=== PATIENT | female | born 1960 | race Caucasian/White ===

== ENCOUNTER 2016-11-03 09:11 | Day surgery (SDC) | payer BC ==
--- NOTE | ~2016-11-03 | EGD ---
EGD REPORT [facility] [address] [address] NAME: ANNEMARIE WARNER : [birth year] STATUS : REG [facility]#: [id number] AGE: 56 ADM/REG DATE : 11/03/16 MR#: [id number] REPORT SERV DATE: 11/03/16 DICTATED BY: ERNIE MCGINNIS DATE: 11/03/16 REPORT STATUS : Draft [facility]ANSCRIBED BY: [facility] DATE: 11/03/16 Endoscopy Center Patient Name: Annemarie Warner Date of : 1960 Attending MD: ERNIE MCGINNIS MD Procedure Date No Time: 11/03/2016 Procedure: Colonoscopy Indications: Follow-up of diverticulitis Referring MD: KRISTINA REYNOLDS MD Medicines: Monitored Anesthesia Care Complications: No immediate complications. Procedure: Pre-Anesthesia Assessment: - ASA Grade Assessment: III - A patient with severe systemic disease. After I obtained informed consent, the scope was passed under direct vision. Throughout the procedure, the patient's blood pressure, pulse, and oxygen saturations were monitored continuously. The CF [id number] was introduced through the anus and advanced to the terminal ileum, with identification of the appendiceal orifice and IC valve. The colonoscopy was performed without difficulty. The patient tolerated the procedure well. The quality of the bowel preparation was good. Findings: The digital rectal exam was normal. Pertinent negatives include no palpable rectal lesions. Multiple diverticula were found in the sigmoid colon. Non-bleeding hemorrhoids were found during retroflexion and were mild. The terminal ileum appeared normal. Impression: - Diverticulosis in the sigmoid colon. - Non-bleeding hemorrhoids. Recommendation: - Patient has a contact number available for emergencies. The signs and symptoms of potential delayed complications were discussed with the patient. Return to normal activities tomorrow. Written discharge instructions were provided to the patient. - Regular diet. - Continue present medications. - Repeat colonoscopy in 5 years for screening purposes. - Return to GI clinic PRN. Procedure Code(s): --- Professional --- EGD REPORT [facility] [address] [place], [place] [address] [place]. [address] NAME: ANNEMARIE WARNER : [birth year] [place]US [place] [facility] [place]#: [id number] AGE: 56 ADM/REG DATE : 11/03/16 MR#: [id number] REPORT SERV DATE: 11/03/16 DICTATED BY: ERNIE MCGINNIS DATE: 11/03/16 REPORT STATUS : Draft TRANSCRIBED BY: [employer] DATE: 11/03/16 40699, Colonoscopy, flexible, proximal to splenic flexure; diagnostic, with or without collection of specimen(s) by brushing or washing, with or without colon decompression (separate procedure) Diagnosis Code(s): --- Professional --- K64.9, Unspecified hemorrhoids K57.30, Diverticulosis of large intestine without perforation or abscess without bleeding K57.32, Diverticulitis of large intestine without perforation or abscess without bleeding CPT copyright 2013 [employer]. All rights reserved. The codes documented in this report are preliminary and upon certified medical coder review may be revised to meet current compliance requirements. ERNIE MCGINNIS MD 11/03/2016 11:48 AM This report has been signed electronically. Number of Addenda: 0 Note Initiated On: 11/03/2016 11:03 AM Scope Withdrawal Time 0 hours 7 minutes 18 seconds [id number] [place] [address]
--- NOTE | ~2016-11-03 | EGD ---
EGD REPORT [facility] [address] [address] NAME: ANNEMARIE WARNER : [birth year] STATUS : REG [facility]#: [id number] AGE: 56 ADM/REG DATE : 11/03/16 MR#: [id number] REPORT SERV DATE: 11/03/16 DICTATED BY: ERNIE MCGINNIS DATE: 11/03/16 REPORT STATUS : Draft [facility]ANSCRIBED BY: [facility] DATE: 11/03/16 Endoscopy Center Patient Name: Annemarie Warner Date of : 1960 Attending MD: ERNIE MCGINNIS MD Procedure Date No Time: 11/03/2016 Procedure: Upper GI endoscopy Indications: Heartburn, Nausea Referring MD: KRISTINA REYNOLDS MD Medicines: Monitored Anesthesia Care Complications: No immediate complications. Procedure: Pre-Anesthesia Assessment: - ASA Grade Assessment: III - A patient with severe systemic disease. - ASA Grade Assessment: III - A patient with severe systemic disease. After obtaining informed consent, the endoscope was passed under direct vision. Throughout the procedure, the patient's blood pressure, pulse, and oxygen saturations were monitored continuously. The GIF [id number] was introduced through the mouth, and advanced to the second part of duodenum. The upper GI endoscopy was accomplished without difficulty. The patient tolerated the procedure well. Findings: LA Grade B (one or more mucosal breaks greater than 5 mm, not extending between the tops of two mucosal folds) esophagitis was found in the lower third of the esophagus. Biopsies were taken with a cold forceps for histology. A small hiatus hernia was present. Localized mild inflammation characterized by erosions and erythema was found in the gastric antrum. Biopsies were taken with a cold forceps for histology. The duodenal bulb and 2nd part of the duodenum were normal. Biopsies were taken with a cold forceps for histology. The cardia and gastric fundus were normal on retroflexion. Impression: - LA Grade B reflux esophagitis. Biopsied. - Hiatus hernia. - Gastritis. Biopsied. - Normal duodenal bulb and 2nd part of the duodenum. Biopsied. Recommendation: - Await pathology results. EGD REPORT [address] [address] NAME: ANNEMARIE WARNER : [birth year] [place] [facility] [place]#: [id number] AGE: 56 ADM/REG DATE : 11/03/16 MR#: [id number] REPORT SERV DATE: 11/03/16 DICTATED BY: ERNIE MCGINNIS DATE: 11/03/16 REPORT STATUS : Draft TRANSCRIBED BY: [employer] DATE: 11/03/16 - Use Protonix (pantoprazole) 40 mg PO daily. - Follow an antireflux regimen. Procedure Code(s): --- Professional --- 42738, Esophagogastroduodenoscopy, flexible, transoral; with biopsy, single or multiple Diagnosis Code(s): --- Professional --- K21.0, Gastro-esophageal reflux disease with esophagitis K44.9, Diaphragmatic hernia without obstruction or gangrene K29.70, Gastritis, unspecified, without bleeding R12, Heartburn R11.0, Nausea CPT copyright 2013 [employer]. All rights reserved. The codes documented in this report are preliminary and upon router setter review may be revised to meet current compliance requirements. ERNIE MCGINNIS MD 11/03/2016 11:32 AM This report has been signed electronically. Number of Addenda: 0 Note Initiated On: 11/03/2016 11:10 AM Scope Withdrawal Time 0 hours 0 minutes 0 seconds [id number] [id number]
[~2016-11-03 09:11] MED LIST: ADVIL PO; C5 PO; COLCRYS0.6 MG PO; COREG3 PO; LEVOTHYROXIN100 MCG PO; LEVOTHYROXIN175 MCG PO; PCET PO; PRIN5 PO; Z100 PO; ZANTAC 75 PO
== END 2016-11-03 23:59 | disposition home health service (06) ==
LOC: DMU 09:11
PROVIDERS: Internal Medicine Gastroenterology
PROC: 0DB68ZX Excision of Stomach, Via Natural or Artificial Opening Endoscopic, Diagnostic (ICD-10-PCS; 2016-11-03)
PROC: 0DJD8ZZ Inspection of Lower Intestinal Tract, Via Natural or Artificial Opening Endoscopic (ICD-10-PCS; 2016-11-03)
PROC: 0DB38ZX Excision of Lower Esophagus, Via Natural or Artificial Opening Endoscopic, Diagnostic (ICD-10-PCS; principal; 2016-11-03 10:30)
PROC: 0DB98ZX Excision of Duodenum, Via Natural or Artificial Opening Endoscopic, Diagnostic (ICD-10-PCS; 2016-11-03 10:30)
DX: K29.50 Unspecified chronic gastritis without bleeding (principal); K57.32 Diverticulitis of large intestine without perforation or abscess without bleeding; K21.0 Gastro-esophageal reflux disease with esophagitis; K44.9 Diaphragmatic hernia without obstruction or gangrene; K64.9 Unspecified hemorrhoids; I10 Essential (primary) hypertension; K21.9 Gastro-esophageal reflux disease without esophagitis; E03.9 Hypothyroidism, unspecified; Z88.5 Allergy status to narcotic agent; Z88.8 Allergy status to other drugs, medicaments and biological substances
CPT/HCPCS: 88305